=== PATIENT | male | born 1990 | race Caucasian/White ===

== ENCOUNTER 2018-08-21 18:26 | Inpatient (IN) | payer OTHER, MEDICAID ==
--- NOTE | 2018-08-21 18:39 | EDM.PDOC ---
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 strongly encouraged with information provided at discharge. - Problem List Review Problem List Initiated/Reviewed/Updated: Yes - My Orders Last 24 Hours: My Active Orders 08/21/18 18:44 CULTURE STREP A CONFIRMATION [RM] Stat STREP SCRN A RAPID W CULT CONF [RM] Stat 08/21/18 18:47 Cardiac Monitoring [RC] CONTINUOUS Communication Order [RC] ROUTINE Oxygen Therapy, ED [RC] PRN Pulse Oximetry [RC] CONTINUOUS Up With Assistance [RC] ASDIRECTED Chest 2V [CR] Stat CULTURE SPUTUM + SMEAR [RM] Urgent Sodium Chloride 0.9% [Saline Flush] 10 ml FLUSH ASDIRECTED PRN Blood Culture x2 Reflex Set [OM.PC] Stat Peripheral IV Insertion Adult [OM.PC] Stat Resuscitation Status Routine 08/21/18 18:48 Peripheral IV Care [RC] . DIRECTED 08/21/18 18:50 CULTURE BLOOD [BC] Stat 08/21/18 19:00 CULTURE BLOOD [BC] Stat 08/21/18 19:36 HEPATITIS PANEL (4) [REF] Routine 08/21/18 19:40 CULTURE URINE [RM] Routine 08/21/18 21:15 Lactated Ringers [Ringers, Lactated] 1,000 ml IV ASDIRECTED 08/21/18 Breakfast Nothing Per Oral Diet [DIET] - Assessment/Plan Admission H&P: Please use this note as an admission H&P Last 24 Hours: My Active Orders 08/21/18 18:44 CULTURE STREP A CONFIRMATION [RM] Stat STREP SCRN A RAPID W CULT CONF [RM] Stat 08/21/18 18:47 Cardiac Monitoring [RC] CONTINUOUS Communication Order [RC] ROUTINE Oxygen Therapy, ED [RC] PRN Pulse Oximetry [RC] CONTINUOUS Up With Assistance [RC] ASDIRECTED Chest 2V [CR] Stat CULTURE SPUTUM + SMEAR [RM] Urgent Sodium Chloride 0.9% [Saline Flush] 10 ml FLUSH ASDIRECTED PRN Blood Culture x2 Reflex Set [OM.PC] Stat Peripheral IV Insertion Adult [OM.PC] Stat Resuscitation Status Routine 08/21/18 18:48 Peripheral IV Care [RC] . DIRECTED 08/21/18 18:50 CULTURE BLOOD [BC] Stat 08/21/18 19:00 CULTURE BLOOD [BC] Stat 08/21/18 19:36 HEPATITIS PANEL (4) [REF] Routine 08/21/18 19:40 CULTURE URINE [RM] Routine 08/21/18 21:15 Lactated Ringers [Ringers, Lactated] 1,000 ml IV ASDIRECTED 08/21/18 Breakfast Nothing Per Oral Diet [DIET] Assessment:: As above Plan: As above. Extensive precautions were given to the patient, his mother, and significant other, who are in agreement with the treatment plan. The patient will require about 3-4 days of inpatient/acute care secondary to multiple health problems as above.
[2018-08-21] MEDS ORDERED: Acetaminophen 325 MG Tab PO ONE (18:47)
[2018-08-21 19:33] LABS: CHLORIDE,CL 90 mmol/L (98-107); SODIUM,NA 127 mmol/L (136-145)
[2018-08-21] MEDS ORDERED: methylPREDNISolone Sodium Succinate 125 MG/2 ML SDV IVPUSH ONE (19:45)
[2018-08-21] MEDS ORDERED: Lactated Ringers 1,000 ML IV ONE (19:45)
[2018-08-21] MEDS: Sodium Chloride 0.9% 10 ML Syringe FLUSH PRN (19:58)
[2018-08-21] MEDS ORDERED: Ondansetron 4 MG/2 ML SDV IVPUSH PRN (23:02)
[2018-08-21] MEDS ORDERED: Pantoprazole 40 MG Vial IVPUSH ONE (23:30)
[2018-08-22] MEDS: Sodium Chloride 0.9% 10 ML Syringe FLUSH PRN (00:01)
[2018-08-22] MEDS: Lactated Ringers 1,000 ML IV SCH ×4 (00:05→19:15)
[2018-08-22] MEDS: methylPREDNISolone Sodium Succinate 125 MG/2 ML SDV IVPUSH SCH ×4 (04:50→21:08)
[2018-08-22] MEDS: Ibuprofen 200 MG Tab PO PRN ×2 (07:27→22:36)
[2018-08-22] MEDS: Pantoprazole 40 MG Vial IVPUSH SCH ×2 (08:07→21:08)
[2018-08-22] MEDS: Sodium Chloride 0.9% 10 ML Syringe FLUSH SCH ×2 (08:08→21:09)
[2018-08-22] MEDS: Famotidine 20 MG/2 ML SDV IVPUSH SCH ×2 (08:08→21:08)
[2018-08-22 08:40] LABS: CHLORIDE,CL 99 mmol/L (98-107); SODIUM,NA 134 mmol/L (136-145)
--- NOTE | 2018-08-22 09:29 | PCM.PN ---
- General Info Date of Service: 08/22/18 Admission Dx/Problem (Free Text): 1. LFTs elevation 2. Dehydration Functional Status: Reports: Pain Controlled, Ambulating, Urinating. Denies: Tolerating Diet (Still nothing by mouth, however wants to start his diet today) , New Symptoms, Incentive Spirometry Pain Score: 0 - Review of Systems General: Reports: Fever (This morning), Chills. Denies: Weakness, Fatigue, Malaise, Night Sweats, Appetite (Wants to eat as above) HEENT: Reports: No Symptoms. Denies: Ear Pain, Eye Pain, Headaches, Sinus Congestion, Sore Throat, Rhinitis, Visual Changes Pulmonary: Reports: Cough (Minimal), Sputum (Very occasional clear). Denies: Shortness of Breath, Pleuritic Chest Pain, Hemoptysis, Wheezing Cardiovascular: Reports: No Symptoms. Denies: Chest Pain, Palpitations, Dyspnea on Exertion, Orthopnea, Edema, Lightheadedness Gastrointestinal: Reports: No Symptoms. Denies: Abdominal Pain, Constipation, Decreased Appetite, Diarrhea (One loose bowel movement this morning), Difficulty Swallowing, Flatus, Hematochezia, Melena, Nausea, Vomiting Genitourinary: Reports: No Symptoms. Denies: Dysuria, Frequency, Burning, Pain , Urgency, Incontinence, Hematuria, Retention, Flank Pain Musculoskeletal: Reports: No Symptoms. Denies: Neck Pain, Shoulder Pain, Back Pain, Leg Pain, Joint Pain Skin: Reports: No Symptoms. Denies: Diaphoresis, Rash Neurological: Reports: No Symptoms. Denies: Dizziness, Headache, Numbness, Paresthesia, Tingling, Weakness Psychiatric: Reports: No Symptoms. Denies: Confusion, Depression, Agitation, Hallucinations - Patient Data Vitals - Most Recent: Last Vital Signs Temp 38.2 C H 08/22/18 07:56 Pulse 85 08/22/18 07:56 Resp 16 08/22/18 07:56 BP 104/71 08/22/18 07:56 Pulse Ox 97 08/22/18 07:56 Vital Signs - 24 hr 08/21/18 08/21/18 08/21/18 18:30 21:50 22:47 Temperature [ Oral] Temperature [ 38.6 C H 38.1 C 38.1 C Temporal] Pulse, 96 81 81 Peripheral [ Pulse Oximetry] Respiratory 17 18 18 Rate Blood Pressure 110/54 L 127/75 127/75 [Right Upper] O2 Sat by Pulse 100 96 96 Oximetry O2 Sat by Pulse Oximetry [Room Air] 08/21/18 08/22/18 08/22/18 23:03 00:00 04:00 Temperature [ 37.7 C 36.3 C Oral] Temperature [ Temporal] Pulse, 74 71 Peripheral [ Pulse Oximetry] Respiratory 17 15 Rate Blood Pressure 101/57 L 122/83 [Right Upper] O2 Sat by Pulse 98 99 Oximetry O2 Sat by Pulse 96 Oximetry [Room Air] 08/22/18 07:56 Temperature [ 38.2 C H Oral] Temperature [ Temporal] Pulse, 85 Peripheral [ Pulse Oximetry] Respiratory 16 Rate Blood Pressure 104/71 [Right Upper] O2 Sat by Pulse 97 Oximetry O2 Sat by Pulse Oximetry [Room Air] Weight - Most Recent: 59.874 kg I&O - Last 24 Hours: Intake & Output 08/21/18 08/22/18 08/22/18 22:59 06:59 14:59 Intake Total 1000 Output Total 1100 800 Balance -1100 200 Imaging Impressions - Last 24 Hours: 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 No extrasystoles or arrhythmia. Acute Abdominal x-rays shows moderate pulmonary obstructive disease with increased nonspecific bowel gaseous pattern mostly in the colon with no fluid levels, free air, ileus, obstruction, pulmonary infiltrates, cardiomegaly, CHF, etc. Lab Results Last 24 Hours: Laboratory Results - last 24 hr 08/21/18 08/21/18 08/21/18 Range/Units 19:00 19:00 19:00 WBC 5.8 (4.0-10.2) K/uL RBC 5.60 H (4.33-5.41) M/uL Hgb 16.4 D (13.1-16.8) g/dL Hct 47.0 (39.0-49.0) % MCV 83.9 L (84.0-98.0) fL MCH 29.3 (28.2-33.3) pg MCHC 34.9 (31.7-36.0) g/dL RDW 13.7 (11.2-14.1) % Plt Count 109 L D (150-350) K/uL Neut % (Auto) 81.9 H (45.0-80.0) % Lymph % (Auto) 11.9 (10.0-50.0) % Gilchrist % (Auto) 6.0 (2.0-14.0) % Eos % (Auto) 0.0 (0.0-5.0) % Baso % (Auto) 0.2 (0.0-2.0) % Neut # (Auto) 4.74 (1.40-7.00) K/uL Lymph # (Auto) 0.69 (0.50-3.50) K/uL Gilchrist # (Auto) 0.35 (0.00-1.00) K/uL Eos # (Auto) 0.00 (0.00-0.50) K/uL Baso # (Auto) 0.01 (0.00-0.20) K/uL PT 13.3 H (9.5-12.0) SEC INR 1.2 APTT 36.3 H (21.0-31.3) SEC Sodium 127 L D (136-145) mmol/L Potassium 3.4 L (3.5-5.1) mmol/L Chloride 90 L D (98-107) mmol/L Carbon Dioxide 24.4 (21.0-32.0) mmol/L BUN 8 (7-18) mg/dL Creatinine 0.88 (0.51-1.17) mg/dL Est Cr Clr Drug Dosing 111.04 mL/min Estimated GFR (MDRD) > 60 mL/min Glucose 120 H (74-106) mg/dL Lactic Acid (0.4-2.0) mmol/L Calcium 8.6 (8.5-10.1) mg/dL Magnesium 1.4 L (1.8-2.4) mg/dL Total Bilirubin 0.3 (0.2-1.0) mg/dL AST 785 H (15-37) U/L ALT 592 H (12-78) U/L Alkaline Phosphatase 54 (46-116) IU/L Total Protein 7.5 (6.4-8.2) g/dL Albumin 3.7 (3.4-5.0) g/dL Triglycerides (30-150) mg/dL Cholesterol (100-200) mg/dL LDL Cholesterol, Calc (0-100) mg/dL HDL Cholesterol (40-60) mg/dL Amylase (25-115) U/L Lipase (73-393) U/L Specimen Type Urine Color Urine Appearance Urine pH (5.0-9.0) Ur Specific [place] (1.005-1.030) Urine Protein (NEGATIVE) mg/dL Urine Glucose (UA) (NEGATIVE) mg/dL Urine Ketones (NEGATIVE) mg/dL Urine Occult Blood (NEGATIVE) Urine Nitrite (NEGATIVE) Urine Bilirubin (NEGATIVE) Urine Urobilinogen (0.2-1.0) E.U./dL Ur Leukocyte Esterase (NEGATIVE) Urine RBC /HPF Urine WBC /HPF Ur Epithelial Cells /LPF Urine Bacteria (NONE TO FEW) /HPF Granular Casts (NEGATIVE) /LPF Urine Mucus (NEGATIVE) /LPF 08/21/18 08/21/18 08/21/18 Range/Units 19:00 19:00 19:00 WBC (4.0-10.2) K/uL RBC (4.33-5.41) M/uL Hgb (13.1-16.8) g/dL Hct (39.0-49.0) % MCV (84.0-98.0) fL MCH (28.2-33.3) pg MCHC (31.7-36.0) g/dL RDW (11.2-14.1) % Plt Count (150-350) K/uL Neut % (Auto) (45.0-80.0) % Lymph % (Auto) (10.0-50.0) % Gilchrist % (Auto) (2.0-14.0) % Eos % (Auto) (0.0-5.0) % Baso % (Auto) (0.0-2.0) % Neut # (Auto) (1.40-7.00) K/uL Lymph # (Auto) (0.50-3.50) K/uL Gilchrist # (Auto) (0.00-1.00) K/uL Eos # (Auto) (0.00-0.50) K/uL Baso # (Auto) (0.00-0.20) K/uL PT (9.5-12.0) SEC INR APTT (21.0-31.3) SEC Sodium (136-145) mmol/L Potassium (3.5-5.1) mmol/L Chloride (98-107) mmol/L Carbon Dioxide (21.0-32.0) mmol/L BUN (7-18) mg/dL Creatinine (0.51-1.17) mg/dL Est Cr Clr Drug Dosing mL/min Estimated GFR (MDRD) mL/min Glucose (74-106) mg/dL Lactic Acid 1.0 (0.4-2.0) mmol/L Calcium (8.5-10.1) mg/dL Magnesium (1.8-2.4) mg/dL Total Bilirubin (0.2-1.0) mg/dL AST (15-37) U/L ALT (12-78) U/L Alkaline Phosphatase (46-116) IU/L Total Protein (6.4-8.2) g/dL Albumin (3.4-5.0) g/dL Triglycerides (30-150) mg/dL Cholesterol (100-200) mg/dL LDL Cholesterol, Calc (0-100) mg/dL HDL Cholesterol (40-60) mg/dL Amylase 66 (25-115) U/L Lipase 252 (73-393) U/L Specimen Type Urine Color Urine Appearance Urine pH (5.0-9.0) Ur Specific [place] (1.005-1.030) Urine Protein (NEGATIVE) mg/dL Urine Glucose (UA) (NEGATIVE) mg/dL Urine Ketones (NEGATIVE) mg/dL Urine Occult Blood (NEGATIVE) Urine Nitrite (NEGATIVE) Urine Bilirubin (NEGATIVE) Urine Urobilinogen (0.2-1.0) E.U./dL Ur Leukocyte Esterase (NEGATIVE) Urine RBC /HPF Urine WBC /HPF Ur Epithelial Cells /LPF Urine Bacteria (NONE TO FEW) /HPF Granular Casts (NEGATIVE) /LPF Urine Mucus (NEGATIVE) /LPF 08/21/18 08/22/18 08/22/18 Range/Units 19:40 07:35 07:35 WBC 4.8 (4.0-10.2) K/uL RBC 5.24 (4.33-5.41) M/uL Hgb 15.4 (13.1-16.8) g/dL Hct 43.8 (39.0-49.0) % MCV 83.6 L (84.0-98.0) fL MCH 29.4 (28.2-33.3) pg MCHC 35.2 (31.7-36.0) g/dL RDW 13.7 (11.2-14.1) % Plt Count 125 L (150-350) K/uL Neut % (Auto) 79.6 (45.0-80.0) % Lymph % (Auto) 13.9 (10.0-50.0) % Gilchrist % (Auto) 6.3 (2.0-14.0) % Eos % (Auto) 0.0 (0.0-5.0) % Baso % (Auto) 0.2 (0.0-2.0) % Neut # (Auto) 3.79 (1.40-7.00) K/uL Lymph # (Auto) 0.66 (0.50-3.50) K/uL Gilchrist # (Auto) 0.30 (0.00-1.00) K/uL Eos # (Auto) 0.00 (0.00-0.50) K/uL Baso # (Auto) 0.01 (0.00-0.20) K/uL PT (9.5-12.0) SEC INR APTT (21.0-31.3) SEC Sodium 134 L (136-145) mmol/L Potassium 3.7 (3.5-5.1) mmol/L Chloride 99 (98-107) mmol/L Carbon Dioxide 23.1 (21.0-32.0) mmol/L BUN 10 (7-18) mg/dL Creatinine 0.56 (0.51-1.17) mg/dL Est Cr Clr Drug Dosing 163.35 mL/min Estimated GFR (MDRD) > 60 mL/min Glucose 127 H (74-106) mg/dL Lactic Acid (0.4-2.0) mmol/L Calcium 8.2 L (8.5-10.1) mg/dL Magnesium 1.6 L (1.8-2.4) mg/dL Total Bilirubin 0.3 (0.2-1.0) mg/dL AST 886 H (15-37) U/L ALT 716 H (12-78) U/L Alkaline Phosphatase 45 L (46-116) IU/L Total Protein 6.4 (6.4-8.2) g/dL Albumin 3.0 L (3.4-5.0) g/dL Triglycerides (30-150) mg/dL Cholesterol (100-200) mg/dL LDL Cholesterol, Calc (0-100) mg/dL HDL Cholesterol (40-60) mg/dL Amylase 51 (25-115) U/L Lipase 180 (73-393) U/L Specimen Type Urincc Urine Color Abigail Urine Appearance Clear Urine pH 5.5 (5.0-9.0) Ur Specific [place] 1.020 (1.005-1.030) Urine Protein 100 H (NEGATIVE) mg/dL Urine Glucose (UA) Negative (NEGATIVE) mg/dL Urine Ketones 40 H (NEGATIVE) mg/dL Urine Occult Blood Trace-lysed H (NEGATIVE) Urine Nitrite Negative (NEGATIVE) Urine Bilirubin Negative (NEGATIVE) Urine Urobilinogen 0.2 (0.2-1.0) E.U./dL Ur Leukocyte Esterase Negative (NEGATIVE) Urine RBC Not seen /HPF Urine WBC 0-5 /HPF Ur Epithelial Cells Occasional /LPF Urine Bacteria Occasional (NONE TO FEW) /HPF Granular Casts Rare H (NEGATIVE) /LPF Urine Mucus Many H (NEGATIVE) /LPF 08/22/18 Range/Units 07:35 WBC (4.0-10.2) K/uL RBC (4.33-5.41) M/uL Hgb (13.1-16.8) g/dL Hct (39.0-49.0) % MCV (84.0-98.0) fL MCH (28.2-33.3) pg MCHC (31.7-36.0) g/dL RDW (11.2-14.1) % Plt Count (150-350) K/uL Neut % (Auto) (45.0-80.0) % Lymph % (Auto) (10.0-50.0) % [place]christ % (Auto) (2.0-14.0) % Eos % (Auto) (0.0-5.0) % Baso % (Auto) (0.0-2.0) % Neut # (Auto) (1.40-7.00) K/uL Lymph # (Auto) (0.50-3.50) K/uL [place]christ # (Auto) (0.00-1.00) K/uL Eos # (Auto) (0.00-0.50) K/uL Baso # (Auto) (0.00-0.20) K/uL PT (9.5-12.0) SEC INR APTT (21.0-31.3) SEC Sodium (136-145) mmol/L Potassium (3.5-5.1) mmol/L Chloride (98-107) mmol/L Carbon Dioxide (21.0-32.0) mmol/L BUN (7-18) mg/dL Creatinine (0.51-1.17) mg/dL Est Cr Clr Drug Dosing mL/min Estimated GFR (MDRD) mL/min Glucose (74-106) mg/dL Lactic Acid (0.4-2.0) mmol/L Calcium (8.5-10.1) mg/dL Magnesium (1.8-2.4) mg/dL Total Bilirubin (0.2-1.0) mg/dL AST (15-37) U/L ALT (12-78) U/L Alkaline Phosphatase (46-116) IU/L Total Protein (6.4-8.2) g/dL Albumin (3.4-5.0) g/dL Triglycerides 86 (30-150) mg/dL Cholesterol 85 L (100-200) mg/dL LDL Cholesterol, Calc 48 (0-100) mg/dL HDL Cholesterol 20 L (40-60) mg/dL Amylase (25-115) U/L Lipase (73-393) U/L Specimen Type Urine Color Urine Appearance Urine pH (5.0-9.0) Ur Specific [place] (1.005-1.030) Urine Protein (NEGATIVE) mg/dL Urine Glucose (UA) (NEGATIVE) mg/dL Urine Ketones (NEGATIVE) mg/dL Urine Occult Blood (NEGATIVE) Urine Nitrite (NEGATIVE) Urine Bilirubin (NEGATIVE) Urine Urobilinogen (0.2-1.0) E.U./dL Ur Leukocyte Esterase (NEGATIVE) Urine RBC /HPF Urine WBC /HPF Ur Epithelial Cells /LPF Urine Bacteria (NONE TO FEW) /HPF Granular Casts (NEGATIVE) /LPF Urine Mucus (NEGATIVE) /LPF Jagjit Results Last 24 Hours: Microbiology 08/21/18 18:44 Group A Streptococcus Rapid Screen - Final Throat NEGATIVE STREP A SCREEN 08/21/18 18:44 Influenza Type A Antigen Screen - Final Nasal, Left NEGATIVE INFLUENZA A VIRUS AG Influenza Type B Antigen Screen - Final NEGATIVE INFLUENZA B VIRUS AG Urine culture and sensitivity still pending Med Orders - Current: Current Medications Famotidine (Pepcid) 20 mg IVPUSH Q12H [facility] Last Admin: 08/22/18 08:08 Dose: 20 mg Lactated Ringer's (Ringers, Lactated) 1,000 mls @ 150 mls/hr IV ASDIRECTED [facility] Last Admin: 08/22/18 04:47 Dose: 150 mls/hr Ibuprofen (Motrin) 400 mg PO Q6H PRN PRN Reason: Pain Last Admin: 08/22/18 07:27 Dose: 400 mg Methylprednisolone Sodium Succinate (Solu-Medrol) 125 mg IVPUSH Q8H [facility] Last Admin: 08/22/18 05:14 Dose: Not Given Ondansetron HCl (Zofran) 4 mg IVPUSH Q6H PRN PRN Reason: Nausea/Vomiting Pantoprazole Sodium (Protonix Iv) 40 mg IVPUSH Q12H [facility] Last Admin: 08/22/18 08:07 Dose: 40 mg Sodium Chloride (Saline Flush) 10 ml FLUSH ASDIRECTED PRN PRN Reason: Keep Vein Open Last Admin: 08/22/18 00:01 Dose: 10 ml Sodium Chloride (Saline Flush) 10 ml FLUSH Q12HR [facility] Last Admin: 08/22/18 08:08 Dose: 10 ml Temazepam (Restoril) 15 mg PO DAILY@2000 PRN PRN Reason: Insomnia Discontinued Medications Acetaminophen (Tylenol) 650 mg PO ONETIME ONE Stop: 08/21/18 18:48 Last Admin: 08/21/18 19:38 Dose: 650 mg Lactated Ringer's (Ringers, Lactated) 1,000 mls @ 999 mls/hr IV .BOLUS ONE Stop: 08/21/18 20:45 Last Admin: 08/21/18 19:57 Dose: 999 mls/hr Methylprednisolone Sodium Succinate (Solu-Medrol) 125 mg IVPUSH ONETIME ONE Stop: 08/21/18 19:46 Last Admin: 08/21/18 19:57 Dose: 125 mg Pantoprazole Sodium (Protonix Iv) 40 mg IVPUSH ONETIME ONE Stop: 08/21/18 23:31 Last Admin: 08/22/18 00:01 Dose: 40 mg - Exam Quality Assessment: DVT Prophylaxis, Restraints. No: Supplemental Oxygen, Central Line/PICC, Urine Catheter, Skin Breakdown General: Alert, Oriented, Cooperative, No Acute Distress HEENT: Pupils Equal, Pupils Reactive, EOMI, Mucous Membr. Moist/Lafe Neck: Supple, Trachea Midline, No JVD, No Thyromegaly, +2 Carotid Pulse wo Bruit Lungs: Clear to Auscultation, Normal Respiratory Effort. No: Rub Cardiovascular: Regular Rate, Regular Rhythm, No Murmurs. No: Gallops, Rubs GI/Abdominal Exam: Soft, Non-Tender, No Organomegaly, No Distention, No Abnormal Bruit, No Mass, Abnormal Bowel Sounds (Mild diffuse increased bowel sounds not high-pitched in nature). No: Guarding (Male) Exam: Deferred Back Exam: Normal Inspection, Full Range of Motion. No: CVA Tenderness (L), CVA Tenderness (R), Muscle Spasm Extremities: Normal Inspection, Normal Range of Motion, Non-Tender, No Pedal Edema, Normal Capillary Refill. No: Urban's Sign Peripheral Pulses: 2+: Radial (L), Radial (R), Dorsalis Pedis (L), Dorsalis Pedis (R) Skin: Warm, Dry, Intact. No: Ecchymosis Neurological: No New Focal Deficit, Other (No Clinical orthostasis) Psy/Mental Status: Alert, Normal Affect, Normal Mood. No: Agitated, Hallucinations, Withdrawal Symptoms - Problem List & Annotations (1) Elevated LFTs SNOMED Code(s): 142323106, 965556929 Code(s): R94.5 - ABNORMAL RESULTS OF LIVER FUNCTION STUDIES Status: Acute Priority: High Current Visit: Yes Onset Date: 08/21/18 Annotation/ Comment:: Acute hepatitis panel drawn in the emergency room with results still pending. Etiology likely viral hepatitis secondary to fever and recent symptoms with lipid panel showing severe dyslipidemia with significantly decreased HDL. No evidence of elevated fats with unlikely fatty liver. Alcohol history may be an etiology or cofactor to his current LFTs elevation. In addition, note recent moderate ibuprofen and Tylenol use. CT scan of the abdomen and pelvis is scheduled for later this morning. No known exposure to infection. Droplet precautions are to be continued with additional C. difficile to be collected secondary to patient's antibody therapy one month ago. High dose IV Solu-Medrol therapy initiated in the emergency room. Additional work in the a.m. including thiamine level, vitamin B 12 level, folic acid level, Transferin level, ferritin level, and TIBC panel secondary to his alcohol use history, etc. GI and /or infectious disease consultation depending on his clinical course and workup. Mild Progressive LFTs elevation this morning despite IV Solu-Medrol therapy. Probiotics will be added to his diet. (2) Dehydration SNOMED Code(s): 31918525 Code(s): E86.0 - DEHYDRATION Status: Acute Priority: High Current Visit : Yes Onset Date: 08/21/18 Annotation/Comment:: Dehydration secondary to fever and current illness clinically resolved with current IV fluids. Continue IV fluids for now with significant improvement of his hyponatremia and resolution of his previous hypokalemia. Note secondary tachycardia on admission with no clinical orthostasis. He did feel better at time of admission with no recent chest pain or anginal type symptoms. (3) COPD (chronic obstructive pulmonary disease) SNOMED Code(s): 68922653 Code(s): J44.9 - CHRONIC OBSTRUCTIVE PULMONARY DISEASE, UNSPECIFIED Status : Acute Priority: Medium Current Visit: Yes Onset Date: 08/21/18 Qualifiers: COPD type: emphysema Emphysema type: panlobular Qualified Code(s): J43.1 - Panlobular emphysema Annotation/Comment:: COPD versus asthma by today's chest x-ray. Note tobacco use. Consider PFTs on an outpatient basis depending on his clinical course. (4) Hypokalemia SNOMED Code(s): 28190303 Code(s): E87.6 - HYPOKALEMIA Status: Acute Priority: Medium Current Visit: Yes Onset Date: 11/21/14 Annotation/Comment:: He was given a 1 L bolus of IV fluids in the emergency room with continuation of IV hydration during initial phases of hospitalization (5) Hypomagnesemia SNOMED Code(s): 854603146 Code(s): E83.42 - HYPOMAGNESEMIA Status: Acute Priority: Medium Current Visit: Yes Onset Date: 08/21/18 Annotation/Comment:: Observe for now. (6) Hyponatremia SNOMED Code(s): 80615892 Code(s): E87.1 - HYPO-OSMOLALITY AND HYPONATREMIA Status: Acute Priority : High Current Visit: Yes Onset Date: 08/21/18 Annotation/Comment:: Approved as above with IV fluids. No neurological deficits. (7) Illicit drug use, continuous SNOMED Code(s): 436649863 Code(s): F19.90 - OTHER PSYCHOACTIVE SUBSTANCE USE, UNSPECIFIED, UNCOMPLICATED Status: Chronic Priority: Medium Current Visit: Yes Annotation/Comment:: Discontinuation of marijuana use strongly encouraged (8) Mixed anxiety depressive disorder SNOMED Code(s): 858233501 Code(s): F41.8 - OTHER SPECIFIED ANXIETY DISORDERS Status: Chronic Priority: Medium Current Visit: Yes Annotation/Comment:: Stable by history with previous significant depression and probable alcohol abuse with consideration of psychiatric consultation depending on his clinical course. Continue to observe closely by his regular providers. (9) Tobacco abuse counseling SNOMED Code(s): 085973832, 819448074, 479578856 Code(s): Z71.6 - TOBACCO ABUSE COUNSELING Status: Chronic Priority: Medium Current Visit: Yes Annotation/Comment:: Tobacco cessation once again strongly encouraged with information provided at discharge. (10) Hypoalbuminemia SNOMED Code(s): 931900423 Code(s): E88.09 - OTH DISORDERS OF PLASMA-PROTEIN METABOLISM, NEC Status: Acute Priority: Medium Current Visit: Yes Onset Date: 08/22/18 Annotation/Comment:: Observe for now. (11) Dyslipidemia SNOMED Code(s): 044135710 Code(s): E78.5 - HYPERLIPIDEMIA, UNSPECIFIED Status: Acute Priority: Medium Current Visit: Yes Onset Date: 08/22/18 Annotation/Comment:: As above. - Problem List Review Problem List Initiated/Reviewed/Updated: Yes - My Orders Last 24 Hours: My Active Orders 08/21/18 18:44 CULTURE STREP A CONFIRMATION [] Stat STREP SCRN A RAPID W CULT CONF [] Stat 08/21/18 18:47 Cardiac Monitoring [RC] Q2HR Communication Order [RC] ROUTINE Oxygen Therapy, ED [RC] PRN Pulse Oximetry [RC] CONTINUOUS Up With Assistance [RC] ASDIRECTED Chest 2V [CR] Stat CULTURE SPUTUM + SMEAR [RM] Urgent Sodium Chloride 0.9% [Saline Flush] 10 ml FLUSH ASDIRECTED PRN Blood Culture x2 Reflex Set [OM.PC] Stat Peripheral IV Insertion Adult [OM.PC] Stat Resuscitation Status Routine 08/21/18 18:48 Peripheral IV Care [RC] . DIRECTED 08/21/18 18:50 CULTURE BLOOD [BC] Stat 08/21/18 19:00 CULTURE BLOOD [BC] Stat 08/21/18 19:36 HEPATITIS PANEL (4) [REF] Routine 08/21/18 19:40 CULTURE URINE [RM] Routine 08/21/18 20:00 Temazepam [Restoril] 15 mg PO DAILY@1999 PRN 08/21/18 21:15 Lactated Ringers [Ringers, Lactated] 1,000 ml IV ASDIRECTED 08/21/18 22:58 Ibuprofen [Motrin] 400 mg PO Q6H PRN 08/21/18 23:02 Ondansetron [Zofran] 4 mg IVPUSH Q6H PRN 08/21/18 23:03 Communication Order [RC] ROUTINE Communication Order [RC] ROUTINE Height and Weight [RC] DAILY Intake and Output Strict [RC] ASDIRECTED Oxygen Therapy [RC] PRN Pulse Oximetry [RC] ASDIRECTED Up With Assistance [RC] ASDIRECTED Vaccines to be Administered [RC] PER UNIT ROUTINE Vital Signs [RC] Q4HR OCCULT BLOOD DIAGNOSTIC [OP] Routine GM Immunization Reflex [OM.PC] Click To Edit 08/21/18 23:05 Abdomen Pelvis w Cont [CT] Urgent Isolation [COMM] Routine 08/22/18 05:11 Abdomen Series w Chest 1V [CR] Routine GLYCOSYLATED HEMOGLOBIN,HGBA1C [CHEM] Routine 08/22/18 06:00 methylPREDNISolone Sod Succ [Solu-MEDROL] 125 mg IVPUSH Q8H 08/22/18 08:00 Pantoprazole [ProTONIX IV] 40 mg IVPUSH Q12H Sodium Chloride 0.9% [Saline Flush] 10 ml FLUSH Q12HR 08/22/18 09:00 Famotidine [Pepcid] 20 mg IVPUSH Q12H - Assessment Assessment:: As above - Plan Plan:: As above. Extensive precautions were given to the patient and his significant other, who are in agreement with the treatment plan. Patient will require an additional 2-3 days of inpatient/acute care secondary to multiple problems as above.
[2018-08-22 09:34] LABS: HEMOGLOBIN A1C 5.3 % (4.3-5.7)
[2018-08-22] MEDS: Nicotine 21 MG/24 Hr Patch TRDERM SCH ×2 (10:53→21:24)
[2018-08-22] MEDS: Lactobacillus Rhamnosus GG (Probiotic) Cap PO SCH ×2 (11:00→17:38)
[2018-08-22] MEDS: Magnesium Oxide 400 MG Tab PO SCH (14:25)
[2018-08-22] MEDS: Temazepam 15 MG Cap PO PRN (22:37)
[2018-08-23] MEDS: Temazepam 15 MG Cap PO PRN (00:02)
[2018-08-23] MEDS: Lactated Ringers 1,000 ML IV SCH (02:52)
[2018-08-23] MEDS: methylPREDNISolone Sodium Succinate 125 MG/2 ML SDV IVPUSH SCH (05:44)
[2018-08-23] MEDS: Sodium Chloride 0.9% 10 ML Syringe FLUSH PRN (05:45)
[2018-08-23 05:51] VITALS: BP 128/90
[2018-08-23 07:35] LABS: CHLORIDE,CL 101 mmol/L (98-107); SODIUM,NA 136 mmol/L (136-145)
[2018-08-23] MEDS ORDERED: Remove Patch NICOTINE PATCH TRDERM SCH (08:00)
[2018-08-23] MEDS: Lactobacillus Rhamnosus GG (Probiotic) Cap PO SCH (08:16)
[2018-08-23] MEDS: Pantoprazole 40 MG Vial IVPUSH SCH (08:16)
[2018-08-23] MEDS: Magnesium Oxide 400 MG Tab PO SCH (08:16)
[2018-08-23] MEDS: Famotidine 20 MG/2 ML SDV IVPUSH SCH (08:17)
[2018-08-23] MEDS: Sodium Chloride 0.9% 10 ML Syringe FLUSH SCH (08:18)
[2018-08-23] MEDS: Nicotine 21 MG/24 Hr Patch TRDERM SCH (08:19)
--- NOTE | 2018-08-23 09:55 | PCM.DCSUM1 ---
Discharge Summary - Hospital Course HPI Initial Comments: See emergency room note/admission H&P Brief History: See emergency room note/admission H&P Diagnosis: Stroke: No Modified [place] Scale: No Symptoms at All Modified [place] Scale Score: 0 - Discharge Data Discharge Date: 08/23/18 Discharge Disposition: Home, Self-Care 01 Condition: Good - Discharge Diagnosis/Problem(s) (1) Elevated LFTs SNOMED Code(s): 996467823, 593926520 ICD Code: R94.5 - ABNORMAL RESULTS OF LIVER FUNCTION STUDIES Status: Acute Priority: High Current Visit: Yes Onset Date: 08/21/18 Problem Details : Despite aggressive IV Solu-Medrol therapy there continues to be some slow mild upper progression of his LFTs elevation with no hyperbilirubinemia and previously negative lipase and amylase evaluations 2. Note that plan CT scan of the abdomen and pelvis during this hospitalization could not be conducted secondary to equipment problems. The patient is becoming extremely anxious secondary to no longer been able to use marijuana during this hospitalization and wants to be discharged to home. Various therapeutic options were discussed with the patient and his mother, including abdominal ultrasound in this facility later today, however the patient still wishes to go home with CT scan of the abdomen and pelvis to be conducted on an outpatient basis [facility] once our equipment is running tomorrow. Acute hepatitis panel was drawn in the emergency room with results still pending. Etiology likely viral hepatitis secondary to fever and recent symptoms with lipid panel showing severe dyslipidemia with significantly decreased HDL. No evidence of elevated fats with unlikely fatty liver. Alcohol history may be an etiology or cofactor to his current LFTs elevation. In addition, note recent moderate ibuprofen and Tylenol use. No known exposure to infection. Continue strict hepatitis/Droplet precautions until results of his hepatitis panel, etc. are obtained. Additional C. difficile antigen stool specimen has been collected with results pending. Note patient's antibiotic therapy one month ago. High dose IV Solu-Medrol therapy initiated in the emergency room with patient to be discharged on short course of oral prednisone. Close follow-up by his regular provider as per discharge instructions. Thiamine and Transferin levels are still pending with otherwise normal vitamin B 12 level, folic acid level, and iron studies to this appointment with artifactually decreased TIBC secondary to his hypoalbuminemia. Strict avoidance of Tylenol, alcohol, etc. was extensively discussed with the patient and his mother. GI and/or infectious disease consultation depending on his clinical course and workup. Probiotics were initiated yesterday with continuation an outpatient basis for now. Continue heart healthy diet. High- dose Prilosec on an outpatient basis secondary to his prednisone therapy. (2) Dehydration SNOMED Code(s): 99137570 ICD Code: E86.0 - DEHYDRATION Status: Acute Priority: High Current Visit: Yes Onset Date: 08/21/18 Problem Details: Dehydration secondary to fever and current illness clinically resolved with aggressive IV hydration during this hospitalization. Continue sports drinks for now with no additional potassium with variable potassium levels during this hospitalization despite IV fluids as above. His hyponatremia has resolved with mild return of his hypokalemia. Note secondary tachycardia on admission with no clinical orthostasis or tachycardia at discharge.. He did feel better at time of admission with no recent chest pain or anginal type symptoms. (3) COPD (chronic obstructive pulmonary disease) SNOMED Code(s): 22511354 ICD Code: J44.9 - CHRONIC OBSTRUCTIVE PULMONARY DISEASE, UNSPECIFIED Status : Acute Priority: Medium Current Visit: Yes Onset Date: 08/21/18 Problem Details: COPD versus asthma by x-rays during this hospitalization. Note tobacco and marijuana use. Consider PFTs on an outpatient basis depending on his clinical course. Qualifiers: COPD type: emphysema Emphysema type: panlobular Qualified Code(s): J43.1 - Panlobular emphysema (4) Hypokalemia SNOMED Code(s): 33007959 ICD Code: E87.6 - HYPOKALEMIA Status: Acute Priority: Medium Current Visit: Yes Onset Date: 11/21/14 Problem Details: As above. He was given a 1 L bolus of IV fluids in the emergency room with continuation of IV hydration during the entire hospitalization. Close follow-up by regular provider. (5) Hypomagnesemia SNOMED Code(s): 133172027 ICD Code: E83.42 - HYPOMAGNESEMIA Status: Acute Priority: Medium Current Visit: Yes Onset Date: 08/21/18 Problem Details: Observe for now. Follow-up by regular provider. (6) Hyponatremia SNOMED Code(s): 80491373 ICD Code: E87.1 - HYPO-OSMOLALITY AND HYPONATREMIA Status: Acute Priority : High Current Visit: Yes Onset Date: 08/21/18 Problem Details: As above. No neurological deficits during this hospitalization. (7) Illicit drug use, continuous SNOMED Code(s): 821122562 ICD Code: F19.90 - OTHER PSYCHOACTIVE SUBSTANCE USE, UNSPECIFIED, UNCOMPLICATED Status: Chronic Priority: Medium Current Visit: Yes Problem Details: Discontinuation of marijuana use strongly encouraged. (8) Mixed anxiety depressive disorder SNOMED Code(s): 797431713 ICD Code: F41.8 - OTHER SPECIFIED ANXIETY DISORDERS Status: Chronic Priority: Medium Current Visit: Yes Problem Details: Moderate anxiety at discharge secondary to his lack of marijuana use. Stable by history prior to admission with previous significant depression and probable alcohol abuse with consideration of psychiatric consultation depending on his clinical course. Continue to observe closely by his regular providers. (9) Tobacco abuse counseling SNOMED Code(s): 299490398, 823277402, 842714456 ICD Code: Z71.6 - TOBACCO ABUSE COUNSELING Status: Chronic Priority: Medium Current Visit: Yes Problem Details: Tobacco cessation once again strongly encouraged with information provided at discharge. (10) Hypoalbuminemia SNOMED Code(s): 737453005 ICD Code: E88.09 - [facility] DISORDERS OF PLASMA-PROTEIN METABOLISM, NEC Status: Acute Priority: Medium Current Visit: Yes Onset Date: 08/22/18 Problem Details: Observe for now. (11) Dyslipidemia SNOMED Code(s): 142179317 ICD Code: E78.5 - HYPERLIPIDEMIA, UNSPECIFIED Status: Acute Priority: Medium Current Visit: Yes Onset Date: 08/22/18 Problem Details: As above. - Patient Summary/Data Operative Procedure(s) Performed: None Complications: None Consults: None Labs Pending at D/C: 1. Thiamine level 2. Transferin level 3. Acute Hepatitis panel 4. C. difficile stool antigen Recommended Follow-up Testing/Procedures: As per discharge instructions Planned Operative Procedure(s) after DC: None Hospital Course: The patient was admitted to inpatient/acute care on telemetry with resolution of tachycardia with aggressive IV fluid hydration. Note occasional mild borderline sinus tachycardia secondary to his anxiety had later phases of hospitalization. Mild progression of his LFTs elevation despite high-dose IV Solu-Medrol therapy with likely etiology of acute hepatitis and/or as above. Patient did insist on being discharged today with CT scan and close follow-up on an outpatient basis as above. - Patient Instructions Diet: Heart Healthy Diet Diet, Other: Additional sports drinks Activity: As Tolerated Driving: May Drive Today Showering/Bathing: May Shower Notify Provider of: Fever, Increased Pain, Nausea and/or Vomiting Other/Special Instructions: 1. Follow-up with your new regular provider, Mp Aguilar PA-C, at the [facility] in [place], on 06/29 at 10 AM for reevaluation and recommended CBC, comprehensive metabolic panel, and magnesium level magnesium level. Bring these discharge instructions with you to that visit. 2. Strict hygiene precautions as discussed including no sexual activity , etc. 3. Strict avoidance of all alcohol, illicit drugs, Tylenol, etc. with only limited use of OTC ibuprofen or Aleve, if absolutely necessary for any fever, etc. 4. Continue your previous work excuse with update by her regular provider at follow-up visit. 5. This facility will call you in the near future to schedule you for recommended CT scan of the abdomen and pelvis with further instructions at that time. These results will be discussed with your regular provider at the above follow-up. 6. Stop all tobacco use KAY[facility] as directed/per provided information and consider contacting [employer]uit [employer], etc.. 7. Immediately after this visit verify that your cellular telephone's voicemail has been activated and is empty. Also verify that your home telephone's answering machine is operating properly and has space to receive messages. Note that it is sometimes necessary for us to be able to contact you at a later date to discuss your medical care. 8. Please remember that we are ALWAYS here for you and want to answer any questions you may have. Feel free to call the hospital any time and we call you back [facility]. - Discharge Plan *PRESCRIPTION DRUG MONITORING PROGRAM REVIEWED*: Not Applicable *COPY OF PRESCRIPTION DRUG MONITORING REPORT IN PATIENT GINETTE: Not Applicable Prescriptions/Med Rec: Lactobacillus Rhamnosus GG [Culturelle] 2 cap PO TID #60 cap Omeprazole 20 mg PO BIDAC #20 cap.sr predniSONE 20 mg PO BID #10 tab Home Medications: Home Meds Ibuprofen 400 mg PO Q6H PRN 08/21/18 [History] Lactobacillus Rhamnosus GG [Culturelle] 2 cap PO TID #60 cap 08/23/18 [Rx] Omeprazole 20 mg PO BIDAC #20 cap.sr 08/23/18 [Rx] predniSONE 20 mg PO BID #10 tab 08/23/18 [Rx] Oxygen Therapy Mode: Room Air Patient Handouts: Methylprednisolone Solution for Injection Forms: ED Department Discharge Referrals: Mp Aguilar PA [Physician Canine Enforcement Officer] - PCP,None [Primary Care Provider] - - Discharge Summary/Plan Comment DC Time >30 min.: Yes (Coordination of care ) Discharge Summary/Plan Comment: As above. Extensive precautions were given to the patient and his mother, who are in agreement with the treatment plan. See Patient Instructions for further treatment and plan. - General Info Date of Service: 08/23/18 Admission Dx/Problem (Free Text: 1. LFTs elevation 2. Dehydration Functional Status: Reports: Pain Controlled, Tolerating Diet, Ambulating, Urinating, New Symptoms. Denies: Incentive Spirometry Numeric/FACES Score: 0 - Review of Systems General: Reports: No Symptoms. Denies: Fever, Weakness, Fatigue, Malaise, Chills, Night Sweats, Appetite HEENT: Reports: No Symptoms. Denies: Ear Pain, Eye Pain, Headaches, Sinus Congestion, Sore Throat, Rhinitis, Visual Changes Pulmonary: Reports: No Symptoms. Denies: Shortness of Breath, Pleuritic Chest Pain, Cough, Sputum, Hemoptysis, Wheezing Cardiovascular: Reports: No Symptoms. Denies: Chest Pain, Palpitations, Dyspnea on Exertion, Orthopnea, PND, Edema, Lightheadedness Gastrointestinal: Reports: No Symptoms. Denies: Abdominal Pain, Constipation, Decreased Appetite, Diarrhea (Although mild loose stools), Difficulty Swallowing , Flatus, Hematochezia, Melena, Nausea, Vomiting Genitourinary: Reports: No Symptoms. Denies: Dysuria, Frequency, Burning, Pain , Urgency, Incontinence, Hematuria, Retention, Flank Pain Musculoskeletal: Reports: No Symptoms. Denies: Neck Pain, Shoulder Pain, Arm Pain, Hand Pain, Back Pain, Leg Pain Skin: Reports: No Symptoms. Denies: Jaundice, Pallor, Diaphoresis, Bruising, Pruritis Neurological: Reports: No Symptoms. Denies: Confusion, Dizziness, Headache, Numbness, Paresthesia, Syncope, Tingling, Weakness Psychiatric: Reports: Depression, Anxiety, Agitation, Cravings (Marijuana). Denies: Confusion, Hallucinations, Suicidal Ideation, Homicidal Ideation - Patient Data Vitals - Most Recent: Last Vital Signs Temp 36.8 C 08/23/18 05:48 Pulse 82 08/23/18 05:48 Resp 18 08/23/18 05:48 BP 128/90 08/23/18 05:48 Pulse Ox 98 08/23/18 05:48 Vital Signs - 24 hr 08/22/18 08/22/18 08/22/18 13:35 18:00 23:49 Temperature [ 37.1 C 37.3 C Oral] Temperature [ 35.7 C Temporal] Pulse, 87 89 94 Peripheral [ Pulse Oximetry] Respiratory 16 16 16 Rate Blood Pressure 125/81 143/83 H 150/87 H [Right Upper] O2 Sat by Pulse 100 99 98 Oximetry 08/23/18 05:48 Temperature [ 36.8 C Oral] Temperature [ Temporal] Pulse, 82 Peripheral [ Pulse Oximetry] Respiratory 18 Rate Blood Pressure 128/90 [Right Upper] O2 Sat by Pulse 98 Oximetry Weight - Most Recent: 61.462 kg (Up 2 kilograms since admission) I&O - Last 24 hours: Intake & Output 08/22/18 08/23/18 08/23/18 22:59 06:59 14:59 Intake Total 1928 1299 240 Output Total 1500 1200 Balance 428 99 240 Imaging Impressions - Last 24 hrs: panel monitor shows normal sinus rhythm with occasional borderline sinus tachycardia in the low 100s with no ectopy or arrhythmia Last Acute Abdominal x-rays on 08/22/18 shows moderate pulmonary obstructive disease with increased nonspecific bowel gaseous pattern mostly in the colon with no fluid levels, free air, ileus, obstruction, pulmonary infiltrates, cardiomegaly, CHF, etc. Lab Results - Last 24 hrs: Laboratory Results - last 24 hr 08/23/18 08/23/18 08/23/18 Range/Units 05:11 05:11 06:39 WBC 8.4 (4.0-10.2) K/uL RBC 5.18 (4.33-5.41) M/uL Hgb 15.1 (13.1-16.8) g/dL Hct 43.8 (39.0-49.0) % MCV 84.6 (84.0-98.0) fL MCH 29.2 (28.2-33.3) pg MCHC 34.5 (31.7-36.0) g/dL RDW 14.0 (11.2-14.1) % Plt Count 132 L (150-350) K/uL Neut % (Auto) 79.3 (45.0-80.0) % Lymph % (Auto) 13.1 (10.0-50.0) % [place] % (Auto) 7.5 (2.0-14.0) % Eos % (Auto) 0.0 (0.0-5.0) % Baso % (Auto) 0.1 (0.0-2.0) % Neut # (Auto) 6.65 (1.40-7.00) K/uL Lymph # (Auto) 1.10 (0.50-3.50) K/uL [place] # (Auto) 0.63 (0.00-1.00) K/uL Eos # (Auto) 0.00 (0.00-0.50) K/uL Baso # (Auto) 0.01 (0.00-0.20) K/uL PT (9.5-12.0) SEC INR APTT 31.1 (21.0-31.3) SEC Sodium (136-145) mmol/L Potassium (3.5-5.1) mmol/L Chloride (98-107) mmol/L Carbon Dioxide (21.0-32.0) mmol/L BUN (7-18) mg/dL Creatinine (0.51-1.17) mg/dL Est Cr Clr Drug Dosing mL/min Estimated GFR (MDRD) mL/min Glucose (74-106) mg/dL Calcium (8.5-10.1) mg/dL Magnesium (1.8-2.4) mg/dL Iron (50-175) ug/dL TIBC (250-450) ug/dL % Saturation Ferritin (8-388) ng/mL Total Bilirubin (0.2-1.0) mg/dL AST (15-37) U/L ALT (12-78) U/L Alkaline Phosphatase (46-116) IU/L Ammonia 25 (11-32) umol/L C-Reactive Protein (<=0.9) mg/dL Total Protein (6.4-8.2) g/dL Albumin (3.4-5.0) g/dL Vitamin B12 (193-986) pg/mL Folate (8.6-58.9) ng/mL 03/08/23/18 08/23/18 Range/Units 06:39 06:39 06:39 WBC (4.0-10.2) K/uL RBC (4.33-5.41) M/uL Hgb (13.1-16.8) g/dL Hct (39.0-49.0) % MCV (84.0-98.0) fL MCH (28.2-33.3) pg MCHC (31.7-36.0) g/dL RDW (11.2-14.1) % Plt Count (150-350) K/uL Neut % (Auto) (45.0-80.0) % Lymph % (Auto) (10.0-50.0) % [place] % (Auto) (2.0-14.0) % Eos % (Auto) (0.0-5.0) % Baso % (Auto) (0.0-2.0) % Neut # (Auto) (1.40-7.00) K/uL Lymph # (Auto) (0.50-3.50) K/uL [place] # (Auto) (0.00-1.00) K/uL Eos # (Auto) (0.00-0.50) K/uL Baso # (Auto) (0.00-0.20) K/uL PT 11.3 (9.5-12.0) SEC INR 1.1 APTT (21.0-31.3) SEC Sodium 136 (136-145) mmol/L Potassium 3.3 L (3.5-5.1) mmol/L Chloride 101 (98-107) mmol/L Carbon Dioxide 25.5 (21.0-32.0) mmol/L BUN 8 (7-18) mg/dL Creatinine 0.50 L (0.51-1.17) mg/dL Est Cr Clr Drug Dosing 182.95 mL/min Estimated GFR (MDRD) > 60 mL/min Glucose 137 H (74-106) mg/dL Calcium 8.2 L (8.5-10.1) mg/dL Magnesium 1.8 (1.8-2.4) mg/dL Iron 67 (50-175) ug/dL TIBC 191 L (250-450) ug/dL % Saturation 35.70929 Ferritin 6677 H (8-388) ng/mL Total Bilirubin 0.3 (0.2-1.0) mg/dL AST 912 H (15-37) U/L ALT 918 H (12-78) U/L Alkaline Phosphatase 47 (46-116) IU/L Ammonia (11-32) umol/L C-Reactive Protein 1.7 H (<=0.9) mg/dL Total Protein 6.4 (6.4-8.2) g/dL Albumin 3.0 L (3.4-5.0) g/dL Vitamin B12 1448 H (193-986) pg/mL Folate 16.8 (8.6-58.9) ng/mL Laboratory Tests 08/21/18 08/21/18 08/21/18 Range/Units 19:00 19:00 19:00 WBC 5.8 (4.0-10.2) K/uL RBC 5.60 H (4.33-5.41) M/uL Hgb 16.4 D (13.1-16.8) g/dL Hct 47.0 (39.0-49.0) % MCV 83.9 L (84.0-98.0) fL MCH 29.3 (28.2-33.3) pg MCHC 34.9 (31.7-36.0) g/dL RDW 13.7 (11.2-14.1) % Plt Count 109 L D (150-350) K/uL Neut % (Auto) 81.9 H (45.0-80.0) % Lymph % (Auto) 11.9 (10.0-50.0) % [place] % (Auto) 6.0 (2.0-14.0) % Eos % (Auto) 0.0 (0.0-5.0) % Baso % (Auto) 0.2 (0.0-2.0) % Neut # (Auto) 4.74 (1.40-7.00) K/uL Lymph # (Auto) 0.69 (0.50-3.50) K/uL [place] # (Auto) 0.35 (0.00-1.00) K/uL Eos # (Auto) 0.00 (0.00-0.50) K/uL Baso # (Auto) 0.01 (0.00-0.20) K/uL PT 13.3 H (9.5-12.0) SEC INR 1.2 APTT 36.3 H (21.0-31.3) SEC Sodium 127 L D (136-145) mmol/L Potassium 3.4 L (3.5-5.1) mmol/L Chloride 90 L D (98-107) mmol/L Carbon Dioxide 24.4 (21.0-32.0) mmol/L BUN 8 (7-18) mg/dL Creatinine 0.88 (0.51-1.17) mg/dL Est Cr Clr Drug Dosing 111.04 mL/min Estimated GFR (MDRD) > 60 mL/min Glucose 120 H (74-106) mg/dL Hemoglobin A1c (4.3-5.7) % Lactic Acid (0.4-2.0) mmol/L Calcium 8.6 (8.5-10.1) mg/dL Magnesium 1.4 L (1.8-2.4) mg/dL Iron (50-175) ug/dL TIBC (250-450) ug/dL % Saturation Ferritin (8-388) ng/mL Total Bilirubin 0.3 (0.2-1.0) mg/dL Direct Bilirubin (0.0-0.2) mg/dL AST 785 H (15-37) U/L ALT 592 H (12-78) U/L Alkaline Phosphatase 54 (46-116) IU/L Ammonia (11-32) umol/L C-Reactive Protein (<=0.9) mg/dL Total Protein 7.5 (6.4-8.2) g/dL Albumin 3.7 (3.4-5.0) g/dL Triglycerides (30-150) mg/dL Cholesterol (100-200) mg/dL LDL Cholesterol, Calc (0-100) mg/dL HDL Cholesterol (40-60) mg/dL Amylase (25-115) U/L Lipase (73-393) U/L Vitamin B12 (193-986) pg/mL Folate (8.6-58.9) ng/mL Specimen Type Urine Color Urine Appearance Urine pH (5.0-9.0) Ur Specific [place] (1.005-1.030) Urine Protein (NEGATIVE) mg/dL Urine Glucose (UA) (NEGATIVE) mg/dL Urine Ketones (NEGATIVE) mg/dL Urine Occult Blood (NEGATIVE) Urine Nitrite (NEGATIVE) Urine Bilirubin (NEGATIVE) Urine Urobilinogen (0.2-1.0) E.U./dL Ur Leukocyte Esterase (NEGATIVE) Urine RBC /HPF Urine WBC /HPF Ur Epithelial Cells /LPF Urine Bacteria (NONE TO FEW) /HPF Granular Casts (NEGATIVE) /LPF Urine Mucus (NEGATIVE) /LPF 08/21/18 08/21/18 08/21/18 Range/Units 19:00 19:00 19:00 WBC (4.0-10.2) K/uL RBC (4.33-5.41) M/uL Hgb (13.1-16.8) g/dL Hct (39.0-49.0) % MCV (84.0-98.0) fL MCH (28.2-33.3) pg MCHC (31.7-36.0) g/dL RDW (11.2-14.1) % Plt Count (150-350) K/uL Neut % (Auto) (45.0-80.0) % Lymph % (Auto) (10.0-50.0) % [place] % (Auto) (2.0-14.0) % Eos % (Auto) (0.0-5.0) % Baso % (Auto) (0.0-2.0) % Neut # (Auto) (1.40-7.00) K/uL Lymph # (Auto) (0.50-3.50) K/uL [place] # (Auto) (0.00-1.00) K/uL Eos # (Auto) (0.00-0.50) K/uL Baso # (Auto) (0.00-0.20) K/uL PT (9.5-12.0) SEC INR APTT (21.0-31.3) SEC Sodium (136-145) mmol/L Potassium (3.5-5.1) mmol/L Chloride (98-107) mmol/L Carbon Dioxide (21.0-32.0) mmol/L BUN (7-18) mg/dL Creatinine (0.51-1.17) mg/dL Est Cr Clr Drug Dosing mL/min Estimated GFR (MDRD) mL/min Glucose (74-106) mg/dL Hemoglobin A1c (4.3-5.7) % Lactic Acid 1.0 (0.4-2.0) mmol/L Calcium (8.5-10.1) mg/dL Magnesium (1.8-2.4) mg/dL Iron (50-175) ug/dL TIBC (250-450) ug/dL % Saturation Ferritin (8-388) ng/mL Total Bilirubin (0.2-1.0) mg/dL Direct Bilirubin (0.0-0.2) mg/dL AST (15-37) U/L ALT (12-78) U/L Alkaline Phosphatase (46-116) IU/L Ammonia (11-32) umol/L C-Reactive Protein (<=0.9) mg/dL Total Protein (6.4-8.2) g/dL Albumin (3.4-5.0) g/dL Triglycerides (30-150) mg/dL Cholesterol (100-200) mg/dL LDL Cholesterol, Calc (0-100) mg/dL HDL Cholesterol (40-60) mg/dL Amylase 66 (25-115) U/L Lipase 252 (73-393) U/L Vitamin B12 (193-986) pg/mL Folate (8.6-58.9) ng/mL Specimen Type Urine Color Urine Appearance Urine pH (5.0-9.0) Ur Specific [place] (1.005-1.030) Urine Protein (NEGATIVE) mg/dL Urine Glucose (UA) (NEGATIVE) mg/dL Urine Ketones (NEGATIVE) mg/dL Urine Occult Blood (NEGATIVE) Urine Nitrite (NEGATIVE) Urine Bilirubin (NEGATIVE) Urine Urobilinogen (0.2-1.0) E.U./dL Ur Leukocyte Esterase (NEGATIVE) Urine RBC /HPF Urine WBC /HPF Ur Epithelial Cells /LPF Urine Bacteria (NONE TO FEW) /HPF Granular Casts (NEGATIVE) /LPF Urine Mucus (NEGATIVE) /LPF 08/21/18 08/22/18 08/22/18 Range/Units 19:40 07:35 07:35 WBC 4.8 (4.0-10.2) K/uL RBC 5.24 (4.33-5.41) M/uL Hgb 15.4 (13.1-16.8) g/dL Hct 43.8 (39.0-49.0) % MCV 83.6 L (84.0-98.0) fL MCH 29.4 (28.2-33.3) pg MCHC 35.2 (31.7-36.0) g/dL RDW 13.7 (11.2-14.1) % Plt Count 125 L (150-350) K/uL Neut % (Auto) 79.6 (45.0-80.0) % Lymph % (Auto) 13.9 (10.0-50.0) % [place] % (Auto) 6.3 (2.0-14.0) % Eos % (Auto) 0.0 (0.0-5.0) % Baso % (Auto) 0.2 (0.0-2.0) % Neut # (Auto) 3.79 (1.40-7.00) K/uL Lymph # (Auto) 0.66 (0.50-3.50) K/uL [place] # (Auto) 0.30 (0.00-1.00) K/uL Eos # (Auto) 0.00 (0.00-0.50) K/uL Baso # (Auto) 0.01 (0.00-0.20) K/uL PT (9.5-12.0) SEC INR APTT (21.0-31.3) SEC Sodium 134 L (136-145) mmol/L Potassium 3.7 (3.5-5.1) mmol/L Chloride 99 (98-107) mmol/L Carbon Dioxide 23.1 (21.0-32.0) mmol/L BUN 10 (7-18) mg/dL Creatinine 0.56 (0.51-1.17) mg/dL Est Cr Clr Drug Dosing 163.35 mL/min Estimated GFR (MDRD) > 60 mL/min Glucose 127 H (74-106) mg/dL Hemoglobin A1c (4.3-5.7) % Lactic Acid (0.4-2.0) mmol/L Calcium 8.2 L (8.5-10.1) mg/dL Magnesium 1.6 L (1.8-2.4) mg/dL Iron (50-175) ug/dL TIBC (250-450) ug/dL % Saturation Ferritin (8-388) ng/mL Total Bilirubin 0.3 (0.2-1.0) mg/dL Direct Bilirubin (0.0-0.2) mg/dL AST 886 H (15-37) U/L ALT 716 H (12-78) U/L Alkaline Phosphatase 45 L (46-116) IU/L Ammonia (11-32) umol/L C-Reactive Protein (<=0.9) mg/dL Total Protein 6.4 (6.4-8.2) g/dL Albumin 3.0 L (3.4-5.0) g/dL Triglycerides (30-150) mg/dL Cholesterol (100-200) mg/dL LDL Cholesterol, Calc (0-100) mg/dL HDL Cholesterol (40-60) mg/dL Amylase 51 (25-115) U/L Lipase 180 (73-393) U/L Vitamin B12 (193-986) pg/mL Folate (8.6-58.9) ng/mL Specimen Type Urincc Urine Color Abigail Urine Appearance Clear Urine pH 5.5 (5.0-9.0) Ur Specific [place] 1.020 (1.005-1.030) Urine Protein 100 H (NEGATIVE) mg/dL Urine Glucose (UA) Negative (NEGATIVE) mg/dL Urine Ketones 40 H (NEGATIVE) mg/dL Urine Occult Blood Trace-lysed H (NEGATIVE) Urine Nitrite Negative (NEGATIVE) Urine Bilirubin Negative (NEGATIVE) Urine Urobilinogen 0.2 (0.2-1.0) E.U./dL Ur Leukocyte Esterase Negative (NEGATIVE) Urine RBC Not seen /HPF Urine WBC 0-5 /HPF Ur Epithelial Cells Occasional /LPF Urine Bacteria Occasional (NONE TO FEW) /HPF Granular Casts Rare H (NEGATIVE) /LPF Urine Mucus Many H (NEGATIVE) /LPF 08/22/18 08/22/18 08/23/18 Range/Units 07:35 07:50 05:11 WBC (4.0-10.2) K/uL RBC (4.33-5.41) M/uL Hgb (13.1-16.8) g/dL Hct (39.0-49.0) % MCV (84.0-98.0) fL MCH (28.2-33.3) pg MCHC (31.7-36.0) g/dL RDW (11.2-14.1) % Plt Count (150-350) K/uL Neut % (Auto) (45.0-80.0) % Lymph % (Auto) (10.0-50.0) % [place] % (Auto) (2.0-14.0) % Eos % (Auto) (0.0-5.0) % Baso % (Auto) (0.0-2.0) % Neut # (Auto) (1.40-7.00) K/uL Lymph # (Auto) (0.50-3.50) K/uL [place] # (Auto) (0.00-1.00) K/uL Eos # (Auto) (0.00-0.50) K/uL Baso # (Auto) (0.00-0.20) K/uL PT (9.5-12.0) SEC INR APTT 31.1 (21.0-31.3) SEC Sodium (136-145) mmol/L Potassium (3.5-5.1) mmol/L Chloride (98-107) mmol/L Carbon Dioxide (21.0-32.0) mmol/L BUN (7-18) mg/dL Creatinine (0.51-1.17) mg/dL Est Cr Clr Drug Dosing mL/min Estimated GFR (MDRD) mL/min Glucose (74-106) mg/dL Hemoglobin A1c 5.3 (4.3-5.7) % Lactic Acid (0.4-2.0) mmol/L Calcium (8.5-10.1) mg/dL Magnesium (1.8-2.4) mg/dL Iron (50-175) ug/dL TIBC (250-450) ug/dL % Saturation Ferritin (8-388) ng/mL Total Bilirubin (0.2-1.0) mg/dL Direct Bilirubin (0.0-0.2) mg/dL AST (15-37) U/L ALT (12-78) U/L Alkaline Phosphatase (46-116) IU/L Ammonia (11-32) umol/L C-Reactive Protein (<=0.9) mg/dL Total Protein (6.4-8.2) g/dL Albumin (3.4-5.0) g/dL Triglycerides 86 (30-150) mg/dL Cholesterol 85 L (100-200) mg/dL LDL Cholesterol, Calc 48 (0-100) mg/dL HDL Cholesterol 20 L (40-60) mg/dL Amylase (25-115) U/L Lipase (73-393) U/L Vitamin B12 (193-986) pg/mL Folate (8.6-58.9) ng/mL Specimen Type Urine Color Urine Appearance Urine pH (5.0-9.0) Ur Specific [place] (1.005-1.030) Urine Protein (NEGATIVE) mg/dL Urine Glucose (UA) (NEGATIVE) mg/dL Urine Ketones (NEGATIVE) mg/dL Urine Occult Blood (NEGATIVE) Urine Nitrite (NEGATIVE) Urine Bilirubin (NEGATIVE) Urine Urobilinogen (0.2-1.0) E.U./dL Ur Leukocyte Esterase (NEGATIVE) Urine RBC /HPF Urine WBC /HPF Ur Epithelial Cells /LPF Urine Bacteria (NONE TO FEW) /HPF Granular Casts (NEGATIVE) /LPF Urine Mucus (NEGATIVE) /LPF 08/23/18 08/23/18 08/23/18 Range/Units 05:11 06:39 06:39 WBC 8.4 (4.0-10.2) K/uL RBC 5.18 (4.33-5.41) M/uL Hgb 15.1 (13.1-16.8) g/dL Hct 43.8 (39.0-49.0) % MCV 84.6 (84.0-98.0) fL MCH 29.2 (28.2-33.3) pg MCHC 34.5 (31.7-36.0) g/dL RDW 14.0 (11.2-14.1) % Plt Count 132 L (150-350) K/uL Neut % (Auto) 79.3 (45.0-80.0) % Lymph % (Auto) 13.1 (10.0-50.0) % [place] % (Auto) 7.5 (2.0-14.0) % Eos % (Auto) 0.0 (0.0-5.0) % Baso % (Auto) 0.1 (0.0-2.0) % Neut # (Auto) 6.65 (1.40-7.00) K/uL Lymph # (Auto) 1.10 (0.50-3.50) K/uL [place] # (Auto) 0.63 (0.00-1.00) K/uL Eos # (Auto) 0.00 (0.00-0.50) K/uL Baso # (Auto) 0.01 (0.00-0.20) K/uL PT 11.3 (9.5-12.0) SEC INR 1.1 APTT (21.0-31.3) SEC Sodium (136-145) mmol/L Potassium (3.5-5.1) mmol/L Chloride (98-107) mmol/L Carbon Dioxide (21.0-32.0) mmol/L BUN (7-18) mg/dL Creatinine (0.51-1.17) mg/dL Est Cr Clr Drug Dosing mL/min Estimated GFR (MDRD) mL/min Glucose (74-106) mg/dL Hemoglobin A1c (4.3-5.7) % Lactic Acid (0.4-2.0) mmol/L Calcium (8.5-10.1) mg/dL Magnesium (1.8-2.4) mg/dL Iron (50-175) ug/dL TIBC (250-450) ug/dL % Saturation Ferritin (8-388) ng/mL Total Bilirubin (0.2-1.0) mg/dL Direct Bilirubin (0.0-0.2) mg/dL AST (15-37) U/L ALT (12-78) U/L Alkaline Phosphatase (46-116) IU/L Ammonia 25 (11-32) umol/L C-Reactive Protein (<=0.9) mg/dL Total Protein (6.4-8.2) g/dL Albumin (3.4-5.0) g/dL Triglycerides (30-150) mg/dL Cholesterol (100-200) mg/dL LDL Cholesterol, Calc (0-100) mg/dL HDL Cholesterol (40-60) mg/dL Amylase (25-115) U/L Lipase (73-393) U/L Vitamin B12 (193-986) pg/mL Folate (8.6-58.9) ng/mL Specimen Type Urine Color Urine Appearance Urine pH (5.0-9.0) Ur Specific [place] (1.005-1.030) Urine Protein (NEGATIVE) mg/dL Urine Glucose (UA) (NEGATIVE) mg/dL Urine Ketones (NEGATIVE) mg/dL Urine Occult Blood (NEGATIVE) Urine Nitrite (NEGATIVE) Urine Bilirubin (NEGATIVE) Urine Urobilinogen (0.2-1.0) E.U./dL Ur Leukocyte Esterase (NEGATIVE) Urine RBC /HPF Urine WBC /HPF Ur Epithelial Cells /LPF Urine Bacteria (NONE TO FEW) /HPF Granular Casts (NEGATIVE) /LPF Urine Mucus (NEGATIVE) /LPF 08/23/18 08/23/18 08/23/18 Range/Units 06:39 06:39 06:50 WBC (4.0-10.2) K/uL RBC (4.33-5.41) M/uL Hgb (13.1-16.8) g/dL Hct (39.0-49.0) % MCV (84.0-98.0) fL MCH (28.2-33.3) pg MCHC (31.7-36.0) g/dL RDW (11.2-14.1) % Plt Count (150-350) K/uL Neut % (Auto) (45.0-80.0) % Lymph % (Auto) (10.0-50.0) % [place] % (Auto) (2.0-14.0) % Eos % (Auto) (0.0-5.0) % Baso % (Auto) (0.0-2.0) % Neut # (Auto) (1.40-7.00) K/uL Lymph # (Auto) (0.50-3.50) K/uL [place] # (Auto) (0.00-1.00) K/uL Eos # (Auto) (0.00-0.50) K/uL Baso # (Auto) (0.00-0.20) K/uL PT (9.5-12.0) SEC INR APTT (21.0-31.3) SEC Sodium 136 (136-145) mmol/L Potassium 3.3 L (3.5-5.1) mmol/L Chloride 101 (98-107) mmol/L Carbon Dioxide 25.5 (21.0-32.0) mmol/L BUN 8 (7-18) mg/dL Creatinine 0.50 L (0.51-1.17) mg/dL Est Cr Clr Drug Dosing 182.95 mL/min Estimated GFR (MDRD) > 60 mL/min Glucose 137 H (74-106) mg/dL Hemoglobin A1c (4.3-5.7) % Lactic Acid (0.4-2.0) mmol/L Calcium 8.2 L (8.5-10.1) mg/dL Magnesium 1.8 (1.8-2.4) mg/dL Iron 67 (50-175) ug/dL TIBC 191 L (250-450) ug/dL % Saturation 35.49922 Ferritin 6677 H (8-388) ng/mL Total Bilirubin 0.3 (0.2-1.0) mg/dL Direct Bilirubin 0.1 (0.0-0.2) mg/dL AST 912 H (15-37) U/L ALT 918 H (12-78) U/L Alkaline Phosphatase 47 (46-116) IU/L Ammonia (11-32) umol/L C-Reactive Protein 1.7 H (<=0.9) mg/dL Total Protein 6.4 (6.4-8.2) g/dL Albumin 3.0 L (3.4-5.0) g/dL Triglycerides (30-150) mg/dL Cholesterol (100-200) mg/dL LDL Cholesterol, Calc (0-100) mg/dL HDL Cholesterol (40-60) mg/dL Amylase (25-115) U/L Lipase (73-393) U/L Vitamin B12 1448 H (193-986) pg/mL Folate 16.8 (8.6-58.9) ng/mL Specimen Type Urine Color Urine Appearance Urine pH (5.0-9.0) Ur Specific [place] (1.005-1.030) Urine Protein (NEGATIVE) mg/dL Urine Glucose (UA) (NEGATIVE) mg/dL Urine Ketones (NEGATIVE) mg/dL Urine Occult Blood (NEGATIVE) Urine Nitrite (NEGATIVE) Urine Bilirubin (NEGATIVE) Urine Urobilinogen (0.2-1.0) E.U./dL Ur Leukocyte Esterase (NEGATIVE) Urine RBC /HPF Urine WBC /HPF Ur Epithelial Cells /LPF Urine Bacteria (NONE TO FEW) /HPF Granular Casts (NEGATIVE) /LPF Urine Mucus (NEGATIVE) /LPF ENRIQUE Results - Last 24 hrs: Microbiology 08/21/18 19:40 Urine Culture - Final Urine, Clean Catch NO GROWTH AFTER 2 DAYS 08/21/18 18:44 Quick Strep Confirmation Culture - Final Throat NO GROUP A STREP ISOLATED Group A Streptococcus Rapid Screen - Final NEGATIVE STREP A SCREEN 08/21/18 18:50 Aerobic Blood Culture - Preliminary Blood - Venous - Lab Draw NO GROWTH AFTER 1 DAY Anaerobic Blood Culture - Preliminary NO GROWTH AFTER 1 DAY 08/21/18 19:00 Aerobic Blood Culture - Preliminary Blood - Venous NO GROWTH AFTER 1 DAY Anaerobic Blood Culture - Preliminary NO GROWTH AFTER 1 DAY 08/22/18 13:20 Stool Occult Blood (ENRIQUE) - Final Stool / Feces NEGATIVE OCCULT BLOOD Med Orders - Current: Current Medications Famotidine (Pepcid) 20 mg IVPUSH Q12H [facility] Last Admin: 08/23/18 08:17 Dose: 20 mg Lactated Ringer's (Ringers, Lactated) 1,000 mls @ 150 mls/hr IV ASDIRECTED [facility] Last Admin: 08/23/18 02:52 Dose: 150 mls/hr Ibuprofen (Motrin) 400 mg PO Q6H PRN PRN Reason: Pain Last Admin: 08/22/18 22:36 Dose: 400 mg Lactobacillus Rhamnosus (Culturelle) 2 cap PO TID [facility] Last Admin: 08/23/18 08:16 Dose: 2 cap Magnesium Oxide (Magnesium Oxide) 400 mg PO DAILY [facility] Last Admin: 08/23/18 08:16 Dose: 400 mg Methylprednisolone Sodium Succinate (Solu-Medrol) 125 mg IVPUSH Q8H [facility] Last Admin: 08/23/18 05:44 Dose: 125 mg Miscellaneous Information (Remove Patch) 1 ea TRDERM DAILY [facility] Last Admin: 08/23/18 08:18 Dose: Not Given Nicotine (Habitrol) 21 mg TRDERM DAILY [facility] Last Admin: 08/23/18 08:19 Dose: Not Given Ondansetron HCl (Zofran) 4 mg IVPUSH Q6H PRN PRN Reason: Nausea/Vomiting Pantoprazole Sodium (Protonix Iv) 40 mg IVPUSH Q12H [facility] Last Admin: 08/23/18 08:16 Dose: 40 mg Sodium Chloride (Saline Flush) 10 ml FLUSH ASDIRECTED PRN PRN Reason: Keep Vein Open Last Admin: 08/23/18 05:45 Dose: 10 ml Sodium Chloride (Saline Flush) 10 ml FLUSH Q12HR [facility] Last Admin: 08/23/18 08:18 Dose: 10 ml Temazepam (Restoril) 15 mg PO DAILY@2000 PRN PRN Reason: Insomnia Last Admin: 08/23/18 00:02 Dose: 15 mg Discontinued Medications Acetaminophen (Tylenol) 650 mg PO ONETIME ONE Stop: 08/21/18 18:48 Last Admin: 08/21/18 19:38 Dose: 650 mg Lactated Ringer's (Ringers, Lactated) 1,000 mls @ 999 mls/hr IV .BOLUS ONE Stop: 08/21/18 20:45 Last Admin: 08/21/18 19:57 Dose: 999 mls/hr Methylprednisolone Sodium Succinate (Solu-Medrol) 125 mg IVPUSH ONETIME ONE Stop: 08/21/18 19:46 Last Admin: 08/21/18 19:57 Dose: 125 mg Pantoprazole Sodium (Protonix Iv) 40 mg IVPUSH ONETIME ONE Stop: 08/21/18 23:31 Last Admin: 08/22/18 00:01 Dose: 40 mg - Exam Quality Assessment: Reports: DVT Prophylaxis. Denies: Supplemental Oxygen, Central Line/PICC, Urine Catheter, Skin Breakdown, Restraints General: Reports: Alert, Oriented, Cooperative, No Acute Distress HEENT: Reports: Pupils Equal, Pupils Reactive, EOMI, Mucous Membr. Moist/Dooms. Denies: Scleral Icterus Neck: Reports: Supple, Trachea Midline, No JVD, No Thyromegaly, +2 Carotid Pulse wo Bruit. Denies: Lymphadenopathy Lungs: Reports: Clear to Auscultation, Normal Respiratory Effort. Denies: Rub Cardiovascular: Reports: Regular Rate, Regular Rhythm, No Murmurs. Denies: Gallops, Rubs GI/Abdominal Exam: Normal Bowel Sounds, Soft, Non-Tender, No Organomegaly, No Distention, No Abnormal Bruit, No Mass, Pelvis Stable. No: Guarding (Male) Exam: Deferred Rectal (Males) Exam: Deferred Back Exam: Reports: Normal Inspection, Full Range of Motion. Denies: CVA Tenderness (L), CVA Tenderness (R), Muscle Spasm Extremities: Normal Inspection, Normal Range of Motion, Non-Tender, No Pedal Edema, Normal Capillary Refill. No: Urban's Sign Skin: Reports: Warm, Dry, Intact. Denies: Ecchymosis Neurological: Reports: No New Focal Deficit Psy/Mental Status: Reports: Alert, Labile Mood, Anxious (Moderate to severe), Depressed (Moderate), Agitated, Withdrawal Symptoms (Alcohol and marijuana). Denies: Suicidal Ideation, Homicidal Ideation, Hallucinations (No evidence of DTs)
--- NOTE | 2018-08-23 11:57 | PCM.SN ---
- Free Text/Narrative Note: Note significantly elevated ferritin level today. GI referral for liver biopsy may be warranted depending on his clinical course, etc.
== END 2018-08-23 10:45 | disposition home or self-care (01) | DRG 641 ==
LOC: LL.ED 18:26 → LL.MS 21:45
PROVIDERS: ADMIT Family Medicine; ATTEND Family Medicine
DX: E86.0 Dehydration (principal); E87.1 Hypo-osmolality and hyponatremia; E87.6 Hypokalemia; H91.90 Unspecified hearing loss, unspecified ear; H54.7 Unspecified visual loss; F17.210 Nicotine dependence, cigarettes, uncomplicated; J43.1 Panlobular emphysema; R00.0 Tachycardia, unspecified; R94.5 Abnormal results of liver function studies; E83.42 Hypomagnesemia; F19.90 Other psychoactive substance use, unspecified, uncomplicated; F41.8 Other specified anxiety disorders; E78.5 Hyperlipidemia, unspecified; E88.09 Other disorders of plasma-protein metabolism, not elsewhere classified; F41.9 Anxiety disorder, unspecified; Z79.899 Other long term (current) drug therapy; Z88.1 Allergy status to other antibiotic agents; Z88.0 Allergy status to penicillin
CPT/HCPCS: 36415; 71046; 74022; 80053; 80061; 80074; 81001; 82140; 82150; 82248; 82272; 82607; 82728; 82746; 83036; 83540; 83550; 83605; 83690; 83735; 84425; 84466; 85025; 85610; 85730; 86038; 86140; 87040; 87081; 87086; 87430; 87493; 87804; 96361; 96374; 99284-25; A9270-GY; C9113; J2930; J3490; J7120

== ENCOUNTER 2019-11-29 03:57 | Emergency (ER) | payer MEDICAID, OTHER ==
--- NOTE | 2019-11-29 04:18 | EDM.PDOC ---
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 regular provider as per discharge instructions. (4) Hypocalcemia SNOMED Code(s): 5329761 Code(s): E83.51 - HYPOCALCEMIA Status: Acute Priority: Medium Onset Date: 11/29/19 Annotation/Comment:: Observe for now. 1 L bolus of lactated Ringer's given (5) Hypokalemia SNOMED Code(s): 00593912 Code(s): E87.6 - HYPOKALEMIA Status: Chronic Priority: Medium Onset Date: 11/21/14 Annotation/Comment:: History of hypokalemia with 1 L bolus of lactated Ringer's given in the emergency room (6) Illicit drug use, continuous SNOMED Code(s): 047398671 Code(s): F19.90 - OTHER PSYCHOACTIVE SUBSTANCE USE, UNSPECIFIED, UNCOMPLICATED Status: Chronic Priority: Medium Annotation/Comment:: Discontinuation of marijuana use strongly encouraged. (7) Mixed anxiety depressive disorder SNOMED Code(s): 266964519 Code(s): F41.8 - OTHER SPECIFIED ANXIETY DISORDERS Status: Chronic Priority: Medium Annotation/Comment:: Poor control with alcohol treatment, etc. recommended as above. (8) Tobacco abuse counseling SNOMED Code(s): 870125513, 309527182, 581471022 Code(s): Z71.6 - TOBACCO ABUSE COUNSELING Status: Chronic Priority: Medium Annotation/Comment:: Tobacco cessation once again strongly encouraged with information provided at discharge. (9) Abrasion SNOMED Code(s): 622700791 Code(s): T14.8XXA - OTHER INJURY OF UNSPECIFIED BODY REGION, INITIAL ENCOUNTER Status: Acute Priority: Medium Onset Date: 11/29/19 Annotation/Comment:: Minor abrasion as above. Last tetanus given at [facility] on 12/20/18. (10) Pulmonary nodules/lesions, multiple SNOMED Code(s): 727630936 Code(s): R91.8 - OTHER NONSPECIFIC ABNORMAL FINDING OF LUNG FIELD Status: Acute Priority: Medium Onset Date: 11/29/19 Annotation/Comment:: Incidental finding by CT scan as above. No further workup required per radiologist. (11) Elevated blood pressure reading SNOMED Code(s): 24403261 Code(s): R03.0 - ELEVATED BLOOD-PRESSURE READING, W/O DIAGNOSIS OF HTN Status: Acute Priority: Medium Onset Date: 11/29/19 (12) Diverticulosis SNOMED Code(s): 415822821 Code(s): K57.90 - DVRTCLOS OF INTEST, PART UNSP, W/O PERF OR ABSCESS W/O BLEED Status: Acute Priority: Medium Onset Date: 11/29/19 Annotation/Comment:: Nonsymptomatic (13) Fatty liver SNOMED Code(s): 406294857 Code(s): K76.0 - FATTY (CHANGE OF) LIVER, NOT ELSEWHERE CLASSIFIED Status: Acute Priority: Medium Onset Date: 11/29/19 Annotation/Comment:: Nonsymptomatic. History of LFTs elevation and dyslipidemia. Note alcohol use as above. - Problem List Review Problem List Initiated/Reviewed/Updated: Yes - My Orders Last 24 Hours: My Active Orders 11/29/19 04:16 PROLACTIN [REF] Stat 11/29/19 04:19 Cardiac Monitoring [RC] . DIRECTED EKG Documentation Completion [RC] ASDIRECTED Oxygen Therapy, ED [RC] PRN Peripheral IV Care [RC] . DIRECTED Pulse Oximetry [RC] CONTINUOUS Up With Assistance [RC] PFP Vital Signs [RC] PFP Abdomen Pelvis w Cont [CT] Stat Cervical Spine wo Cont [CT] Stat Chest 1V Frontal [CR] Stat Head wo Cont [CT] Stat CULTURE URINE [RM] Urgent Obtain Past Medical Record [OM.PC] Urgent Peripheral IV Insertion Adult [OM.PC] Stat Resuscitation Status Stat - Assessment/Plan Last 24 Hours: My Active Orders 11/29/19 04:16 PROLACTIN [REF] Stat 11/29/19 04:19 Cardiac Monitoring [RC] . DIRECTED EKG Documentation Completion [RC] ASDIRECTED Oxygen Therapy, ED [RC] PRN Peripheral IV Care [RC] . DIRECTED Pulse Oximetry [RC] CONTINUOUS Up With Assistance [RC] PFP Vital Signs [RC] PFP Abdomen Pelvis w Cont [CT] Stat Cervical Spine wo Cont [CT] Stat Chest 1V Frontal [CR] Stat Head wo Cont [CT] Stat CULTURE URINE [RM] Urgent Obtain Past Medical Record [OM.PC] Urgent Peripheral IV Insertion Adult [OM.PC] Stat Resuscitation Status Stat Assessment:: As above Plan: As above. Extensive precautions were given to the patient, his paternal grandmother and mother, who are in agreement with the treatment plan. See Patient Instructions for further treatment and plan.
[2019-11-29] MEDS ORDERED: Sodium Chloride 0.9% 10 ML Syringe FLUSH PRN (04:19)
[2019-11-29] MEDS ORDERED: Iopamidol 612 MG/ML 100 ML Bottle IVPUSH ONE (04:22)
[2019-11-29 04:36] LABS: PTT,PARTIAL THROMBOPLSTIN TIME 24.1 SEC (24.5-32.8)
[2019-11-29 04:48] LABS: CHLORIDE,CL 107 mmol/L (98-107); SODIUM,NA 143 mmol/L (136-145)
[2019-11-29] MEDS: Lactated Ringers 1,000 ML IV ONE (05:20)
[2019-11-29] MEDS: Iopamidol 612 MG/ML 100 ML Bottle IVPUSH ONE (05:50)
[2019-11-29] MEDS ORDERED: Iopamidol 612 MG/ML 100 ML Bottle ONE (06:14)
[2019-11-29 06:21] LABS: BARBITURATE SCREEN,URINE NEGATIVE (NEGATIVE); BENZODIAZEPINES SCREEN,URINE NEGATIVE (NEGATIVE); EDDP,URINE SCREEN NEGATIVE (NEGATIVE); TCA SCREEN,URINE NEGATIVE (NEGATIVE); THC SCREEN,URINE 50 NG/ML POSITIVE (NEGATIVE)
[2019-12-01 19:20] VITALS: BP 130/80; PULSE 93
== END 2019-11-29 06:30 | disposition home or self-care (01) ==
LOC: LL.ED 03:57
DX: S40.211A Abrasion of right shoulder, initial encounter (principal); F10.120 Alcohol abuse with intoxication, uncomplicated; R74.0 Nonspecific elevation of levels of transaminase and lactic acid dehydrogenase [LDH]; E87.6 Hypokalemia; E83.51 Hypocalcemia; F19.90 Other psychoactive substance use, unspecified, uncomplicated; K76.0 Fatty (change of) liver, not elsewhere classified; K57.30 Diverticulosis of large intestine without perforation or abscess without bleeding; R03.0 Elevated blood-pressure reading, without diagnosis of hypertension; F41.8 Other specified anxiety disorders; Z71.6 Tobacco abuse counseling; F17.210 Nicotine dependence, cigarettes, uncomplicated; Z88.1 Allergy status to other antibiotic agents; Z88.0 Allergy status to penicillin; V89.2XXA Person injured in unspecified motor-vehicle accident, traffic, initial encounter
CPT/HCPCS: 36415; 70450; 71045; 72125; 74177; 80053; 80305-QW; 80307; 81001; 82150; 82550; 82553; 83605; 83690; 83735; 84146; 84484; 84550; 85025; 85610; 85730; 87086; 93005; 93010; 99284; 99284-25; J7120; Q9967

== ENCOUNTER 2022-08-20 19:29 | Emergency (ER) | payer BC, MEDICAID ==
[2022-08-20 19:32] VITALS: BP 133/95; PULSE 101
[2022-08-20 20:27] LABS: ANION GAP 15.5 meq/L (7-15); CHLORIDE,CL 103 mmol/L (98-107); ESTIMATED GFR 121 mL/min (>=60); SODIUM,NA 142 mmol/L (136-145)
[2022-08-20 20:43] LABS: BARBITURATE SCREEN,URINE NEGATIVE (NEGATIVE); BENZODIAZEPINES SCREEN,URINE NEGATIVE (NEGATIVE); EDDP,URINE SCREEN NEGATIVE (NEGATIVE); TCA SCREEN,URINE NEGATIVE (NEGATIVE); THC SCREEN,URINE 50 NG/ML POSITIVE (NEGATIVE)
[2022-08-20 20:46] LABS: BUPRENORPHINE SCREEN,URINE NEGATIVE (NEGATIVE)
[2022-08-20] MEDS: Thiamine 100 MG Tab PO ONE (20:54)
[2022-08-20] MEDS: Take Home: Cephalexin 500 MG Cap, 6 Cap Pack PO ONE (20:54)
[2022-08-20] MEDS: Bacitracin Oint 1 GM U/D Packet TOP ONE (20:54)
[2022-08-20] MEDS: Lidocaine 2% with EPINEPHrine 1:100,000 20 ML MDV INJECT ONE (20:54)
== END 2022-08-20 20:50 | disposition home or self-care (01) ==
LOC: LL.ED 19:29
DX: S51.812A Laceration without foreign body of left forearm, initial encounter (principal); F10.929 Alcohol use, unspecified with intoxication, unspecified; Z88.0 Allergy status to penicillin; Z72.0 Tobacco use; Y90.1 Blood alcohol level of 20-39 mg/100 ml; W25.XXXA Contact with sharp glass, initial encounter
CPT/HCPCS: 12002; 36415; 80053; 80305-QW; 80307; 81003; 85025; 99283; 99284; A9270-GY; J3490